=== PATIENT | female | born 1990 | race Caucasian/White ===

== ENCOUNTER 2019-12-17 08:43 | Emergency (ER) | payer OTHER ==
[2019-12-17 09:05] VITALS: BP 125/84
--- NOTE | 2019-12-17 09:54 | UC ---
Throat Pain/Nasal Jose HPI - HPI Summary HPI Summary: 28 yo female with sore throat x 2 days no fever/chills + OLIVERA and muscle aches no n/v/d - History of Current Complaint Chief Complaint: UCRespiratory Stated Complaint: SORE THROAT BODYACHES Time Seen by Provider: 12/17/19 09:39 Hx Obtained From: Patient Hx Last Menstrual Period: 12/07/19 Onset/Duration: Gradual Onset Severity: Moderate Pain Intensity: 5 Pain Scale Used: 0-10 Numeric Cough: None Associated Signs & Symptoms: Positive: Negative - Epiglottits Risk Factors Epiglottis Risk Factors: Negative - Allergies/Home Medications Allergies/Adverse Reactions: Allergies Allergy/AdvReac Type Severity Reaction Status Date / Time amoxicillin Allergy Unknown Hives Verified 12/17/19 08:56 Home Medications: Home Medications Aspirin 81 mg CHEW TAB* [Aspirin Low Dose TAB*] 81 mg PO DAILY 12/17/19 [ History Confirmed 12/17/19] Cephalexin CAP* [Keflex CAP*] 500 mg PO BID #20 cap 12/17/19 [Rx] Fluconazole 150 MG (NF) [Diflucan 150 mg (NF)] 150 mg PO ONCE PRN #2 tab [Rx] Ibuprofen TAB* [Advil TAB*] 200 mg PO Q6H PRN 12/17/19 [History Confirmed ] [place]-3 Fatty Acids/Fish Oil [Fish Oil 1,000 mg Softgel] 1 each PO DAILY [History Confirmed 12/17/19] Pnv No.95/Ferrous Fum/Folic AC [ Vitamin & Minera 28-0.8 mg] 1 tab PO DAILY 12/17/19 [History Confirmed 12/17/19] PMH/Surg Hx/FS Hx/Imm Hx Previously Healthy: Yes - Family History Known Family History: Positive: Cardiac Disease, Hypertension, Diabetes, Respiratory Disease - Social History Alcohol Use: Occasionally Substance Use Type: None Smoking Status (MU): Never Smoked Tobacco Household Exposure Type: Cigarettes Review of Systems All Other Systems Reviewed And Are Negative: Yes Constitutional: Positive: Negative Skin: Positive: Negative Eyes: Positive: Negative ENT: Positive: Negative Respiratory: Positive: Negative Cardiovascular: Positive: Negative Gastrointestinal: Positive: Negative Genitourinary: Positive: Negative Motor: Positive: Negative Neurovascular: Positive: Negative Musculoskeletal: Positive: Negative Neurological/Mental Status: Positive: Negative Psychological: Positive: Negative Physical Exam Triage Information Reviewed: Yes Appearance: Well-Appearing, No Pain Distress, Well-Nourished Vital Signs: Initial Vital Signs Temp 99 F 12/17/19 08:58 Pulse 97 12/17/19 08:58 Resp 18 12/17/19 08:58 BP 125/84 12/17/19 08:58 Pulse Ox 97 12/17/19 08:58 Vital Signs Reviewed: Yes Eyes: Positive: Conjunctiva Clear ENT: Positive: Hearing grossly normal, Pharyngeal erythema, TMs normal, Tonsillar swelling, Uvula midline. Negative: Nasal congestion, Nasal drainage, Tonsillar exudate, Trismus, Muffled voice, Hoarse voice Neck: Positive: Supple, Nontender, Enlarged Nodes @ - ant cervical Respiratory: Positive: Lungs clear, Normal breath sounds, No respiratory distress, No accessory muscle use Cardiovascular: Positive: RRR, No Murmur Musculoskeletal: Positive: ROM Intact, No Edema Neurological: Positive: Muscle Tone Normal Psychological Exam: Normal Skin Exam: Normal Diagnostics - Laboratory Lab Results: strep + Throat Pain/Nasal Course/Dx - Differential Dx/Diagnosis Provider Diagnosis: Strep throat Discharge ED - Sign-Out/Discharge Documenting (check all that apply): Patient Departure All imaging exams completed and their final reports reviewed: No Studies - Discharge Plan Condition: Stable Disposition: HOME Prescriptions: Cephalexin CAP* [Keflex CAP*] 500 mg PO BID #20 cap Fluconazole 150 MG (NF) [Diflucan 150 mg (NF)] 150 mg PO ONCE PRN #2 tab PRN Reason: Itching Patient Education Materials: Strep Throat (DC) Forms: *Work Release Referrals: Abby Casillas MD [Primary Care Provider] - 4 Days (if not completely better) - Billing Disposition and Condition Condition: STABLE Disposition: Home
== END 2019-12-17 10:07 | disposition home or self-care (01) ==
LOC: UCCORT 08:43
DX: J02.0 Streptococcal pharyngitis (principal); Z88.0 Allergy status to penicillin; Z79.82 Long term (current) use of aspirin
CPT/HCPCS: 87651; 99201; G0463

== ENCOUNTER 2020-01-05 07:12 | Emergency (ER) | payer OTHER ==
[2020-01-05 07:42] VITALS: BP 143/75
--- NOTE | 2020-01-05 08:26 | UC ---
Throat Pain/Nasal Jose HPI - HPI Summary HPI Summary: sore throat x 3 days , pain is 3 out of 10 , worse with swallowing, better with Tylenol had strep throat 3 2 weeks ago , no fever, no chills, no body aches , denies any cough - History of Current Complaint Chief Complaint: UCGeneralIllness Stated Complaint: SORE THROAT,COUGH,HEADACHE Time Seen by Provider: 01/05/20 07:54 Hx Obtained From: Patient Hx Last Menstrual Period: 12/07/19 Onset/Duration: Gradual Onset, Lasting Days - 3, Still Present Pain Intensity: 5 Pain Scale Used: 0-10 Numeric Cough: None Associated Signs & Symptoms: Positive: Nasal Discharge. Negative: Sinus Discomfort, Fever, Vomiting - Allergies/Home Medications Allergies/Adverse Reactions: Allergies Allergy/AdvReac Type Severity Reaction Status Date / Time amoxicillin Allergy Unknown Hives Verified 01/05/20 07:42 Home Medications: Home Medications Aspirin 81 mg CHEW TAB* [Aspirin Low Dose TAB*] 81 mg PO DAILY 12/17/19 [ History Confirmed 01/05/20] [place]-3 Fatty Acids/Fish Oil [Fish Oil 1,000 mg Softgel] 1 each PO DAILY [History Confirmed 01/05/20] Pnv No.95/Ferrous Fum/Folic AC [ Vitamin & Minera 28-0.8 mg] 1 tab PO DAILY 12/17/19 [History Confirmed 01/05/20] Azithromycin TAB* [Zithromax TAB (Z-SANJUANA) 250 mg #6 tabs] 2 tab PO .TODAY, THEN 1 DAILY #1 sanjuana 01/05/20 [Rx] PMH/Surg Hx/FS Hx/Imm Hx Previously Healthy: Yes - Surgical History Surgical History: None - Family History Known Family History: Positive: Cardiac Disease, Hypertension, Diabetes, Respiratory Disease - Social History Alcohol Use: Occasionally Substance Use Type: None Smoking Status (MU): Never Smoked Tobacco Household Exposure Type: Cigarettes Review of Systems All Other Systems Reviewed And Are Negative: Yes Constitutional: Negative: Fever, Chills, Fatigue Skin: Positive: Negative Eyes: Positive: Negative ENT: Positive: Sore Throat, Nasal Discharge Respiratory: Negative: Cough Is Patient Immunocompromised?: No Physical Exam Triage Information Reviewed: Yes Appearance: Well-Appearing, No Pain Distress, Well-Nourished Vital Signs: Initial Vital Signs Temp 97.8 F 01/05/20 07:36 Pulse 85 01/05/20 07:36 Resp 18 01/05/20 07:36 BP 143/75 01/05/20 07:36 Pulse Ox 100 01/05/20 07:36 Vital Signs Reviewed: Yes Eye Exam: Normal Eyes: Positive: Conjunctiva Clear ENT: Positive: Normal ENT inspection, Hearing grossly normal, Pharyngeal erythema, TMs normal. Negative: Nasal congestion, Nasal drainage, TM bulging, TM dull, TM red, Tonsillar swelling, Tonsillar exudate Neck: Positive: Supple, Nontender, No Lymphadenopathy Respiratory: Positive: Chest non-tender, Lungs clear, Normal breath sounds Cardiovascular: Positive: RRR, No Murmur, Pulses Normal Skin Exam: Normal Throat Pain/Nasal Course/Dx - Differential Dx/Diagnosis Provider Diagnosis: Pharyngitis Discharge ED - Sign-Out/Discharge Documenting (check all that apply): Patient Departure All imaging exams completed and their final reports reviewed: No Studies - Discharge Plan Condition: Stable Disposition: HOME Prescriptions: Azithromycin TAB* [Zithromax TAB (Z-SANJUANA) 250 mg #6 tabs] 2 tab PO .TODAY, THEN 1 DAILY #1 sanjuana Patient Education Materials: Pharyngitis (ED) Referrals: Abby Casillas MD [Primary Care Provider] - If Needed - Billing Disposition and Condition Condition: STABLE Disposition: Home
== END 2020-01-05 08:13 | disposition home or self-care (01) ==
LOC: UCCORT 07:12
DX: J02.9 Acute pharyngitis, unspecified (principal); R09.89 Other specified symptoms and signs involving the circulatory and respiratory systems; Z88.0 Allergy status to penicillin; Z79.82 Long term (current) use of aspirin
CPT/HCPCS: 99212; G0463